=== PATIENT | male | born 1985 | race Caucasian/White ===

== ENCOUNTER → 2019-07-25 | Outpatient (CLI) | payer OTHER | END | disposition home or self-care (01) | LOC: CFH 14:30 | PROVIDERS: ATTEND Chiropractor | DX: M47.816 Spondylosis without myelopathy or radiculopathy, lumbar region (principal); M48.061 Spinal stenosis, lumbar region without neurogenic claudication | CPT/HCPCS: 72040; 72072; 72100; 72170 ==

== ENCOUNTER 2020-06-08 18:24 | Emergency (ER) | payer OTHER ==
[~2020-06-08] VITALS: Ht 182.9 cm; Wt 89.4 kg
--- NOTE | 2020-06-08 18:39 | NUR ---
PT AMBULATES WELL TO ROOM FROM TRIAGE. UA COLLECTED. PT REPORTS BLURRED VISION HAS CLEARED.
[2020-06-08] MEDS ORDERED: ASPIRIN 81 MG TABLET CHEW ONE (19:59)
[2020-06-08] MEDS ORDERED: ASPIRIN 81 MG TABLET CHEW PO ONE (20:00)
[2020-06-08 20:24] LABS: ALANINE AMINOTRANSFERASE 62 U/L (12-78); ALBUMIN 3.9 g/dL (3.4-5.0); ANION GAP 5 mmol/L (5-15); CALCIUM 9.1 mg/dL (8.5-10.1); CHLORIDE 104 mmol/L (98-107)
[2020-06-08 20:25] LABS: BASOPHILS % (AUTO) 0 % (0-1); EOSINOPHILS % (AUTO) 1 % (1-7); LYMPHOCYTES % (AUTO) 25 % (22-44); MEAN CORPUSCULAR HEMOGLOBIN 31.1 pg (27.5-34.5); MEAN CORPUSCULAR HGB CONC 34.3 g/dL (33.2-36.2); MEAN PLATELET VOLUME 7.3 fL (7.4-10.4); MONOCYTES % (AUTO) 8 % (2-9); NEUTROPHILS % (AUTO) 65 % (42-75); PLATELET COUNT 259 x10^3/uL (130-400); RED BLOOD COUNT 5.27 x10^6/uL (4.38-5.82); RED CELL DISTRIBUTION WIDTH 12.7 % (9.4-14.8)
[2020-06-08 20:26] LABS: MD NO
[2020-06-08 20:28] LABS: ALKALINE PHOSPHATASE 57 U/L (45-117); BILIRUBIN,TOTAL 0.6 mg/dL (0.2-1.0); TOTAL PROTEIN 7.3 g/dL (6.4-8.2); TROPONIN I < 0.015 ng/mL (0.000-0.045)
[2020-06-08] MEDS ORDERED: ACETAMINOPHEN 325 MG TABLET PO ONE (21:30)
[2020-06-08] MEDS ORDERED: ACETAMINOPHEN 325 MG TABLET ONE (21:41)
--- NOTE | 2020-06-08 21:47 | NUR ---
Attempting to medicate and pt declines tylenol. ERP in to recheck.
--- NOTE | 2020-06-08 21:54 | NUR ---
REPORT FROM PETRA LANDIN. ASSUMING CARE OF PT. AT THIS TIME.
[2020-06-08] MEDS ORDERED: SODIUM CHLORIDE 0.9% 1,000ML IVBOLUS ONE (22:00)
[2020-06-08] MEDS ORDERED: KETOROLAC 30 MG/1 ML IVPush ONE (22:00)
[2020-06-08] MEDS ORDERED: PROCHLORPERAZINE 5 MG/ML, 2ML IVPush ONE (22:00)
[2020-06-08] MEDS ORDERED: SODIUM CHLORIDE FLUSH 10ML SYR IVF ONE (22:00)
[2020-06-08] MEDS ORDERED: KETOROLAC 30 MG/1 ML ONE (22:02)
[2020-06-08] MEDS ORDERED: PROCHLORPERAZINE 5 MG/ML, 2ML ONE (22:02)
[2020-06-08] MEDS ORDERED: ATOR10TA PO (22:14)
[2020-06-08 22:55] VITALS: BP 120/61
== END 2020-06-08 22:57 | disposition home or self-care (01) ==
LOC: ED 20:27
DX: R51.9 Headache, unspecified (principal); R07.9 Chest pain, unspecified; R94.31 Abnormal electrocardiogram [ECG] [EKG]; H53.9 Unspecified visual disturbance; E78.00 Pure hypercholesterolemia, unspecified
CPT/HCPCS: 36415; 70450; 71045; 80053; 84484; 85025; 93005; 96361; 96374; 96375; 99285; J0780; J1885; J7030